=== PATIENT | female | born 1945 | race Caucasian/White ===

== ENCOUNTER 2019-10-09 07:17 | Day surgery (SDC) | payer MEDICARE, OTHER ==
[~2019-10-09] VITALS: Ht 154.9 cm; Wt 76.4 kg
[2019-10-09 07:36] VITALS: BP 148/61; PULSE 59; TEMP 97.9
[2019-10-09] MEDS ORDERED: SYNTHROID0.088 MG/T PO (07:38)
[2019-10-09] MEDS ORDERED: MULTIPLE VITAMI1 CAP PO (07:38)
[2019-10-09] MEDS ORDERED: ALEVE 220MG220 MG PO (07:39)
[2019-10-09] MEDS ORDERED: VTAMINC250TA PO (07:43)
[2019-10-09] MEDS ORDERED: CEPHALEXIN500 M1 PO (07:44)
[2019-10-09] MEDS ORDERED: DITROPAN XL10 MG PO (07:44)
[2019-10-09] MEDS ORDERED: FOSAMAX 35MG35 MG PO (07:45)
[2019-10-09] MEDS ORDERED: LUTEIN20 M1 PO (07:45)
[2019-10-09] MEDS ORDERED: HAIRSKINNAILS PO (07:46)
[2019-10-09] MEDS ORDERED: VITAMIN D250 MCG PO (07:46)
[2019-10-09] MEDS ORDERED: SANCTURA20 MG PO (07:47)
[2019-10-09] MEDS ORDERED: OMEGA-3 1000 MG1 CAP PO (07:47)
[2019-10-09 09:56] VITALS: BP 128/81; PULSE 80; TEMP 98.1
--- NOTE | 2019-10-09 09:56 | NUR ---
The patient arrived back to [facility] from the operating room at this time. The patient appears alert and oriented and denies any pain or nausea at this time. Post operative vital signs were started at this time. The patient has a bandaid and gauze/tegaderm dressing to her lower left back that appears clean, dry and intact. The patient denies wanting anything to eat or drink at this time. The patient's is at her bedside at this time. Will continue to monitor the patient.
[2019-10-09 10:11] VITALS: BP 127/42; PULSE 68
--- NOTE | 2019-10-09 10:11 | NUR ---
The patient is sitting up in bed and appears to be resting comfortably on the cart at this time. The patient agrees to try some ice water at this time. Allison Leal rep is at the patient's bedside explaining the device to the patient. Will continue to monitor the patient.
--- NOTE | 2019-10-09 10:25 | NUR ---
The patient appears to be tolerating the water well and denies wanting anything to eat at this time. Vital signs appear table. Will continue to monitor the patient.
[2019-10-09 10:26] VITALS: BP 142/61; PULSE 69
[2019-10-09 10:40] VITALS: BP 148/58; PULSE 62
--- NOTE | 2019-10-09 10:45 | NUR ---
The patient has finished her water and verbalizeds a desire to be discharged home. Discharge instructions were reviewed with the patient and her at this time. They both verbalized understanding and have no questions for the nurse at this time. The patient's IV to her right hand was removed and a pressure dressing was applied to the site. The nurse instructed the patient to get dressed and notify the staff when she is ready to be escorted out.
--- NOTE | 2019-10-09 10:55 | NUR ---
The patient was escorted out via wheelchair to a private vehicle by LUPE Mahoney. The patient's belongings and discharge paperwork were sent with her. The patient's is present to drive her home.
== END 2019-10-09 10:55 | disposition home or self-care (01) ==
LOC: SDCO 07:17
DX: N39.46 Mixed incontinence (principal); R35.0 Frequency of micturition; E03.9 Hypothyroidism, unspecified; M81.0 Age-related osteoporosis without current pathological fracture; Z79.899 Other long term (current) drug therapy
CPT/HCPCS: C1767; C1778; C1787; C1894; J0690; J1100; J1580; J2405; J2704; J3010; J7120

== ENCOUNTER 2020-08-16 05:29 | Inpatient (IN) | payer MEDICARE, OTHER ==
[2020-08-16] VITALS (12 sets, daily range): BP systolic 105–153; BP diastolic 51–89; PULSE 59–96; TEMP 97.9–98.7
[~2020-08-16] VITALS: Ht 154.9 cm; Wt 78.7 kg
[~2020-08-16 05:29] MED LIST: ALEVE 220MG220 MG PO; CEPHALEXIN500 M1 PO; DITROPAN XL10 MG PO; FOSAMAX 35MG35 MG PO; HAIRSKINNAILS PO; LUTEIN20 M1 PO; MULTIPLE VITAMI1 CAP PO; MULTIPLE VITAMI1 TA5 PO; OMEGA-3 1000 MG1 CAP PO; SANCTURA20 MG PO; SYNTHROID0.088 MG/T PO; SYNTHROID0.112 MG/T PO; VIACTIV PO; VITAMIN C500 MG PO; VITAMIN D250 MCG PO; VITAMIN D31000 IU PO; VTAMINC250TA PO
--- NOTE | 2020-08-16 05:43 | NUR ---
ARRIVES VIA AMBULATORY STATUS TO ROOM 330. IS ALERT AND ORIENTED X4.
--- NOTE | 2020-08-16 06:20 | NUR ---
PLACED #20 INSYTE TO RIGHT FOREARM ON FIRST ATTEMPT. CONNECTED TO LR, ANCEF GIVEN WELL ES TYLENOL SCHEDULED.
--- NOTE | 2020-08-16 10:30 | NUR ---
Patient is back from surgery. She is alert and oriented. Denies nausea. Rating pain a 2-3 on a 0-10 scale to her left knee. Dressing to knee is C/D/I. Ice placed to left knee. SCD's to BLE. Omar hose to RLE. Bulky dressing to LLE. Discussed plan for today. No other changes at this time. Call light within reach.
--- NOTE | 2020-08-16 11:13 | NUR ---
First visit from the hotel staff member. No needs right now.
--- NOTE | 2020-08-16 11:54 | NUR ---
MATTHIAS met with the patient to discuss discharge plan. The patient lives outside of [place] with her , Chandu (ph#[phone]). She reports independence with ADLs and has a cane and walker. The patient's PCP is Dr. Cherie Colbert and she receives he medications from [facility]. She reports no difficulties obtaining her meds. The patient does not have a DPOA-HC in EMR, but she states that she does have one completed and that it designates her . The patient plans to return home with her and receive outpatient PT at [facility] upon discharge. MATTHIAS contacted the patient's , Chandu, to review d/c plan. Chandu has no concerns with the patient returning home with him upon discharge. No additional needs at this time.
--- NOTE | 2020-08-16 18:30 | NUR ---
Patient has been doing food this afternoon. NO complaints of nausea. Pain controlled with norco. Dressing to left leg remains intact, clean and dry. Explained she will be getting up to go for a walk this evening with staff. No other changes at this time. Call light within reach.
--- NOTE | 2020-08-16 19:30 | NUR ---
Pt. sitting up in bed at this time. Pt. is A&OX3, assessment complete. Dressing to lt. knee CDI. Pt. reports pain at a 3 on pain scale at this time. Pt. denies further needs, call light within reach.
[2020-08-17 04:21] VITALS: BP 145/73; PULSE 74; TEMP 98.6
[2020-08-17 07:51] LABS: HEMOGLOBIN 11.7 g/dl (12.5-16.0)
[2020-08-17 08:15] VITALS: BP 155/57; PULSE 72; TEMP 97.8
[2020-08-17 08:15] LABS: HEMATOCRIT 35.6 % (37.0-47.0)
--- NOTE | 2020-08-17 09:45 | NUR ---
PT UP TO BR WITH ASSISTANCE. WORKED WITH THERAPY THIS AM. DRESSING CHANGE COMPLETE. PAIN CONTROLLED WITH PO MEDS. PT AMBULATING WITH SLOW STEADY GAIT. CURRENTLY UP IN RECLINER WORKING WITH THERAPY.
[2020-08-17 10:59] VITALS: BP 138/66; PULSE 72; TEMP 94.6
[2020-08-17 15:58] VITALS: BP 133/56; PULSE 73; TEMP 97.6
[2020-08-17 20:03] VITALS: BP 149/51; PULSE 77; TEMP 98.3
--- NOTE | 2020-08-17 21:05 | NUR ---
PT IN BED, IS DROWSY. TAKES HS MEDS AT THIS TIME INCLUDING NORCO 7.5MG 1 TAB FOR PAIN 10/19. HAS AQUACEL DRSG TO LEFT KNEE D/I. VOIDING WITHOUT PROBLEM. PT THINKS SHE WILL GO HOME TOMORROW.
--- NOTE | 2020-08-18 02:35 | NUR ---
PT CALLS FOR PAIN MEDS. MEDICATED WITH NORCO 7.5MG 2 TABS FOR 5/10 PAIN TO LEFT KNEE.
[2020-08-18 05:03] VITALS: BP 137/51; PULSE 74; TEMP 97.5
[2020-08-18 07:12] VITALS: BP 114/51; PULSE 71; TEMP 97.9
--- NOTE | 2020-08-18 08:57 | NUR ---
PT IDEPENDENT IN ROOM. VSS, DRESSING TO LEFT KNEE CDI. PT EATING DRINKING, VOIDING. PAIN CON
[2020-08-18] MEDS ORDERED: ASPI325T6 PO (11:19)
[2020-08-18] MEDS ORDERED: NORCO 325 MG-7.1 TAB PO (11:21)
[2020-08-18] MEDS ORDERED: ROXICODONE 55 MG/TAB PO (11:22)
[2020-08-18 11:23] VITALS: BP 125/50; PULSE 63; TEMP 98.6
[2020-08-18] MEDS ORDERED: SENOKOT S 50 MG1 TAB PO (11:23)
--- NOTE | 2020-08-18 16:09 | NUR ---
PT TAKEN TO ED ENTRANCE PER WHEEL CHAIR BY STAFF.
== END 2020-08-18 16:10 | disposition home or self-care (01) | DRG 470 ==
LOC: SDCO 05:29 → JCC 05:30 → SDCO 07:30 → JCC 08-18 16:10
PROVIDERS: ADMIT Orthopaedic Surgery
PROC: 0SRD069 Replacement of Left Knee Joint with Oxidized Zirconium on Polyethylene Synthetic Substitute, Cemented, Open Approach (ICD-10-PCS; principal; 2020-08-16 07:30)
DX: M17.12 Unilateral primary osteoarthritis, left knee (principal)
CPT/HCPCS: A9284; C1776; J0690; J1100; J1885; J2250; J2270; J2405; J2704; J3010; J7120